=== PATIENT | female | born 1990 | race Two or more races ===

== ENCOUNTER 2016-11-01 12:26 | Emergency (ER) | payer OTHER ==
[2016-11-01 12:49] VITALS: BP 92/73
[2016-11-01] MEDS ORDERED: Ibuprofen TAB* 600 MG PO ONE (13:57)
--- NOTE | 2016-11-01 13:57 | UC ---
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 complains of tailbone pain no leg paresthesias - History of Current Complaint Chief Complaint: UCBackPain Stated Complaint: BACK INJURY Time Seen by Provider: 11/01/16 13:43 Hx Obtained From: Patient Hx Last Menstrual Period: IUD Onset/Duration: Sudden Onset, Lasting Days Timing: Constant Severity Initially: Severe Severity Currently: Severe Pain Intensity: 8 Pain Scale Used: 0-10 Numeric Character: Unable to Describe Aggravating: Lifting, Bending Alleviating: OTC Meds - Risk Factors AAA Risk Factors: Negative TAD Risk Factors: Negative Cauda Equina Risk Factors: Negative Epidural Abscess Risk Factors: Negative - Allergies/Home Medications Allergies/Adverse Reactions: Allergies Allergy/AdvReac Type Severity Reaction Status Date / Time No Known Allergies Allergy Verified 08/31/15 11:17 PMH/Surg Hx/FS Hx/Imm Hx Previously Healthy: Yes - Surgical History Surgical History: None - Family History Known Family History: Positive: Hypertension - Social History Alcohol Use: None Substance Use Type: None Smoking Status (MU): Never Smoked Tobacco Review of Systems Constitutional: Negative Skin: Negative Eyes: Negative ENT: Negative Respiratory: Negative Cardiovascular: Negative Gastrointestinal: Negative Genitourinary: Negative Motor: Negative Neurovascular: Negative Musculoskeletal: Arthralgia, Myalgia Neurological: Negative Psychological: Negative All Other Systems Reviewed And Are Negative: Yes Physical Exam Triage Information Reviewed: Yes Appearance: Well-Appearing, No Pain Distress, Well-Nourished Vital Signs: Initial Vital Signs Temp 98.3 F 11/01/16 12:43 Pulse 78 11/01/16 12:43 Resp 16 11/01/16 12:43 BP 92/73 11/01/16 12:43 Pulse Ox 100 11/01/16 12:43 Vital Signs Reviewed: Yes Eyes: Positive: Conjunctiva Clear ENT: Positive: Hearing grossly normal. Negative: Nasal congestion, Nasal drainage, Trismus, Muffled/hoarse voice Neck: Positive: Supple, Nontender Respiratory: Positive: Lungs clear, Normal breath sounds, No respiratory distress Cardiovascular: Positive: RRR Musculoskeletal: Positive: ROM Intact, No Edema Neurological: Positive: Alert Psychological Exam: Normal Back Pain Course/Dx - Differential Dx/Diagnosis Provider Diagnoses: contusion coccyx. lumbar strain Discharge - Discharge Plan Condition: Stable Disposition: HOME Prescriptions: Ibuprofen TAB* [Motrin TAB*] 600 mg PO QID PRN #40 tab PRN Reason: Pain Patient Education Materials: Coccyx Injury (ED) Print Language: MONGOLIAN Forms: *Work Release Referrals: Non Staff,Doctor [Primary Care Provider] - Additional Instructions: recheck Sunday if not markedly better rest ice Images Front/Back of Body, Lg ([place]): 1 - tender 2 - tender paraspinous muscles (no miguel tenderness)
--- NOTE | 2016-11-01 14:49 | RAD ---
HISTORY: Trauma, injury to the sacrum and coccyx COMPARISONS: None VIEWS: 3, frontal, outlet, lateral views of the sacrum and coccyx FINDINGS: BONE DENSITY: Normal. BONES: There is no displaced fracture. The sacral arches are intact JOINTS: There is no arthropathy. ALIGNMENT: There is no dislocation. SOFT TISSUES: Unremarkable. OTHER FINDINGS: An IUD is noted IMPRESSION: NO ACUTE OSSEOUS INJURY OF THE SACRUM AND COCCYX. PLAIN FILMS ARE RELATIVELY INSENSITIVE TO NONDISPLACED FRACTURES OF THE SACRUM AND COCCYX. IF THERE IS PERSISTENT CLINICAL CONCERN FOR SACROCOCCYGEAL OSSEOUS PATHOLOGY, BONE SCANNING MAY BE MORE SENSITIVE
== END 2016-11-01 15:00 | disposition home or self-care (01) ==
LOC: UCEAST 12:26
DX: S30.0XXA Contusion of lower back and pelvis, initial encounter (principal); S39.012A Strain of muscle, fascia and tendon of lower back, initial encounter; W00.0XXA Fall on same level due to ice and snow, initial encounter; Y93.89 Activity, other specified; Y92.9 Unspecified place or not applicable; Y99.0 Civilian activity done for income or pay; Z32.02 Encounter for pregnancy test, result negative
CPT/HCPCS: 72220; 81025; 99212; A9270-GY; G0463

== ENCOUNTER 2016-11-07 10:23 | Emergency (ER) | payer OTHER ==
[2016-11-07 11:29] VITALS: BP 91/64
--- NOTE | 2016-11-07 12:12 | RAD ---
INDICATION: Injury to tailbone 6 weeks ago COMPARISON: Coccyx November 01, 2016 TECHNIQUE: Noncontrast axial source images was performed from the thoracolumbar junction to the sacrum. Coronal and and sagittal reformatted images were generated. FINDINGS: Vertebrae: There is no fracture or acute focal bony lesion. There are no specific CT abnormalities of the coccyx. If there is persistent concern of fracture a bone scan is more sensitive and has been suggested previously. Alignment: The lumbar vertebrae are normally aligned. Central Canal: There are no significant CT abnormalities of the central canal or foramina. MR imaging is a more sensitive method to evaluate the canal and foramina. Intervertebral disc spaces: The disc spaces are maintained. Soft tissues: The paravertebral soft tissues are normal. Other: Is still note is made of an IUD IMPRESSION: NO SPECIFIC CT ABNORMALITIES. CONSIDER FOLLOW-UP BONE SCAN IF THERE IS PERSISTENT CONCERN
--- NOTE | 2016-11-07 14:33 | UC ---
Soumya Pretty Anna, scribed for Christie Pratt MD on 11/07/16 at 1102 . Back Pain HPI - HPI Summary HPI Summary: Patient is a 26 y/o female coming to [facility] presenting with progressively worsening lower back and tailbone pain, 2/2 trauma. She originally fell 1.5 months ago after she slipped on the ice and fell, landing on her bottom. On 10/30, she slipped and fell again onto the same area. She landed on her bottom on the steps. Was seen in the [facility] on the 11/01/16, sacral - coccygeal xrays negative for fx. She was prescribed ibuprofen on 11/01, which initially helped but has been worsening over the last several days. Pain in tailbone is constant , but worse at night, and awakens her with pain. Pain radiates upwards to midback at night. No weakness. No b/b d/o. Pain does not radiate to groin, but does radiate to outer ant thighs bilat. Unclear if associated dysesthesia. Able to ambulate, not tripping. Pt expresses concern that pain is worsening, rather than improving. No recent illness. No cough / cold / sob / cp. No neck pain. No abd pain. No rash. No freq /urg / hematuria. 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 Hx Last Menstrual Period: IUD Onset/Duration: Sudden Onset, Lasting Weeks, Still Present Severity Initially: Moderate Severity Currently: Moderate - Allergies/Home Medications Allergies/Adverse Reactions: Allergies Allergy/AdvReac Type Severity Reaction Status Date / Time No Known Allergies Allergy Verified 08/31/15 11:17 PMH/Surg Hx/FS Hx/Imm Hx Previously Healthy: Yes Endocrine History Of: Denies: Diabetes - Surgical History Surgical History: None - Family History Known Family History: Positive: Hypertension - Social History Occupation: Employed Full-time Alcohol Use: None Substance Use Type: None Smoking Status (MU): Never Smoked Tobacco Review of Systems Constitutional: Negative Skin: Other - see hpi Eyes: Negative ENT: Negative Respiratory: Negative Cardiovascular: Negative Gastrointestinal: Negative Genitourinary: Negative Motor: Decreased ROM - hurts to lay flat or bend over Neurovascular: Other - see hpi Musculoskeletal: Arthralgia, Decreased ROM, Myalgia Neurological: Numbness - see hpi Psychological: Negative All Other Systems Reviewed And Are Negative: Yes Physical Exam Triage Information Reviewed: Yes Appearance: Well-Nourished Vital Signs: Initial Vital Signs Temp 97.8 F 11/07/16 11:01 Pulse 75 11/07/16 11:01 Resp 18 11/07/16 11:01 BP 91/64 11/07/16 11:01 Pulse Ox 100 11/07/16 11:01 Vital Signs Reviewed: Yes Eye Exam: Normal ENT Exam: Normal Neck exam: Normal - No adenopathy appreciated Respiratory Exam: Normal Respiratory: Positive: Chest non-tender, Lungs clear, Normal breath sounds, No respiratory distress, No accessory muscle use Cardiovascular Exam: Normal Cardiovascular: Positive: RRR, No Murmur, Pulses Normal, Brisk Capillary Refill Abdominal Exam: Normal Abdomen Description: Positive: Nontender, No Organomegaly, Soft Bowel Sounds: Positive: Present Neurological Exam: Normal - Patella DTR 2+ and equal. No clonus. Achilles 2+ and equal. Distal sensation to light touch. Both feet good capillary refill. DP/ PT 2+. Psychological Exam: Normal - conversing easily and appropriately Skin Exam: Normal - No visible or reported rash Re-Evaluation - Re-Evaluation First Eval Re-Evaluation Time: 12:55 Comment: Discussed results of CT and plan of care with patient. Back Pain Course/Dx - Course Course Of Treatment: I reviewed xray reports from 11/01/16, also spoke with radiologist about further imaging options. Ms. Jiménez does not have a pcp, as such planning for outpt tpbone scan or mri is challenging. Will order ct noncont. Reviewed urine dip, ucg. Noted + white cells in urine dip. Cx sent. I spoke with Dr. Upton via telephone. He requests that Ms. Jiménez f/ u with [facility] referral pcp (not neurosurgeon) for further evaluation and treatment. [facility] referral information given to pt, further outpt imaging may be needed. ISTOP Reference #: [id number] No reports. - Differential Dx/Diagnosis Provider Diagnoses: Sacral coccygeal pain s/p trauma. - Physician Notifications Discussed Patient Care With: Dr. Upton (neurosurgery) at 1221. Discussed results of patient CT and persistent patient concern. Discharge - Discharge Plan Condition: Stable Disposition: HOME Prescriptions: Acetaminop/Codeine 30 MG TAB* [Tylenol/Codeine 30 MG TAB*] 1 - 2 tab PO Q6H PRN #20 tab MDD 4 PRN Reason: Pain Ibuprofen TAB* [Motrin TAB* 600 MG] 600 mg PO Q8H PRN #30 tab PRN Reason: Pain Patient Education Materials: Coccyx Injury (ED), Low Back Strain (ED) Print Language: CROATIAN Forms: *Work Release Referrals: [facility] PHYSICIAN REFERRAL [Outside] Additional Instructions: Please follow up with a primary care physician as soon as you are able to get an appointment ([facility] Referral system). Please go to the Emergency Department for worse or new problems. No work for 14 days. Diagnostics - Vital Signs Vital Signs Temp Pulse Resp BP Pulse Ox 11/07/16 11:01 97.8 F 75 18 91/64 100 - Laboratory Lab Statement: Any lab studies that have been ordered have been reviewed, and results considered in the medical decision making process. - CT CT L-Spine w/o CT Interpretation: No Acute Changes CT Interpretation Completed By: Radiologist - IMPRESSION: NO SPECIFIC CT ABNORMALITIES. CONSIDER FOLLOW-UP BONE SCAN IF THERE IS PERSISTENT CONCERN The documentation as recorded by the Soumya barajas Anna accurately reflects the service I personally performed and the decisions made by me, Christie Pratt MD.
== END 2016-11-07 13:45 | disposition home or self-care (01) ==
LOC: UCEAST 10:23
DX: M53.3 Sacrococcygeal disorders, not elsewhere classified (principal); W01.0XXA Fall on same level from slipping, tripping and stumbling without subsequent striking against object, initial encounter; Y92.9 Unspecified place or not applicable
CPT/HCPCS: 72131; 81002; 81025; 87086; 99212; G0463

== ENCOUNTER 2023-11-06 11:51 | Inpatient (IN) ==
[2023-11-06] MEDS ORDERED: Lidocaine 1% VIAL 10 MG/ML 30 ML VIAL INJ PRN (11:54)
[2023-11-06] MEDS: Dinoprostone 10 MG VAG.SUPP VAGINAL ONE (12:40)
[2023-11-06 14:13] LABS: ABS Lymphocytes 1.8 10^3/uL (1.0-4.8); ABS Monocytes 0.3 10^3/uL (0.0-0.9); ABS Neutrophils 5.6 10^3/uL (1.5-7.6); Eosinophil % 0.5 %; Hematocrit 36.5 % (35-45); Hemoglobin 12.7 g/dL (11.5-14.3); Lymphocyte % 23.4 %; Mean Corpuscular Hemoglobin 32.2 pg (27-33); Mean Corpuscular Hgb Conc 34.8 g/dL (31-36); Mean Corpuscular Volume 92.6 fL (80-97); Mean Platelet Volume 8.5 fL (7.5-11.2); Nucleated Red Blood Cells % 0.1 %/100WBC (0.0-0.8); Platelet Count 242 10^3/uL (150-450); Red Blood Count 3.94 10^6/uL (3.63-4.92); Red Cell Distribution Width 12.8 % (12-17); White Blood Count 7.8 10^3/uL (3.8-11.8)
[2023-11-06 14:46] LABS: Urine Appearance Clear; Urine Bilirubin Negative (Negative); Urine Blood Negative (Negative); Urine Color Light-Yellow; Urine Glucose Negative (Negative); Urine Ketones Negative (Negative); Urine Nitrite Negative (Negative); Urine Protein Negative (Negative); Urine Specific Gravity 1.004 (1.002-1.030); Urine Urobilinogen Negative (Negative)
[2023-11-06 14:57] LABS: Albumin 3.3 g/dL (3.2-5.2); Albumin/Globulin Ratio 1.3 (1-3); Calcium 8.4 mg/dL (8.6-10.3); Creatinine, Serum 0.61 mg/dL (0.51-0.95); Globulin 2.6 g/dL (2-4); Potassium 3.7 mmol/L (3.5-5.0); Total Bilirubin 0.6 mg/dL (0.2-1.0); Total Protein 5.9 g/dL (6.4-8.9); Uric Acid 4.4 mg/dL (2.3-6.6); eGFR CKD-EPI 122.5 (>60)
[2023-11-06 15:13] LABS: Urine Benzodiazepine Screen None Detected (None Detect); Urine Cannabinoids Screen None Detected (None Detect); Urine Opiates Screen None Detected (None Detect)
[2023-11-06 16:30] LABS: Urine Creatinine Concentration 18.94 mg/dL (20.00-320.00); Urine TP Concentration < 5 mg/dL; Urine TP Creat Ratio 0.26 mg/mg
[2023-11-06] MEDS: Lactated Ringers 1000 ml BAG 1,000 ML IV SCH (18:30)
[2023-11-07] MEDS: Oxytocin in LR 20,000 MILLI.UNIT/1,000 ML BAG IV SCH (07:54)
[2023-11-08] MEDS: Lactated Ringers 1000 ml BAG 1,000 ML IV ONE ×2 (00:09→11:14)
[2023-11-08] MEDS: Oxytocin in LR 20,000 MILLI.UNIT/1,000 ML BAG IV SCH (04:00)
[2023-11-08] MEDS ORDERED: Glycerin ADULT 2.4 gm SUPP PR PRN (04:53)
[2023-11-08] MEDS: Witch Hazel PAD JAR TOPICAL PRN (05:48)
[2023-11-08] MEDS: Dibucaine 1% OINT 28.35 GM TUBE PR PRN (05:48)
[2023-11-08] MEDS ORDERED: Phenylephrine 40 mcg/mL 10mL (400mcg) SYRINGE ONE (07:04)
[2023-11-08 10:40] LABS: Hematocrit 28.6 % (35-45); Hemoglobin 10.2 g/dL (11.5-14.3)
[2023-11-09 07:00] LABS: ABS Eosinophils 0.1 10^3/uL (0.0-0.5); ABS Lymphocytes 3.2 10^3/uL (1.0-4.8); ABS Monocytes 0.7 10^3/uL (0.0-0.9); Eosinophil % 0.9 %; Hematocrit 26.7 % (35-45); Hemoglobin 9.5 g/dL (11.5-14.3); Lymphocyte % 36.1 %; Mean Corpuscular Hemoglobin 32.9 pg (27-33); Mean Corpuscular Hgb Conc 35.4 g/dL (31-36); Mean Corpuscular Volume 92.8 fL (80-97); Mean Platelet Volume 8.3 fL (7.5-11.2); Platelet Count 190 10^3/uL (150-450); Red Blood Count 2.88 10^6/uL (3.63-4.92); White Blood Count 8.9 10^3/uL (3.8-11.8)
[2023-11-09 07:48] VITALS: BP 101/64
== END 2023-11-09 16:50 | disposition home or self-care (01) | DRG 560 ==
LOC: MCHOBOUT 11:51 → MCHOB 12:24
PROVIDERS: ADMIT Midwife; ATTEND Midwife